=== PATIENT | male | born 1985 | race Two or more races ===

== ENCOUNTER 2020-04-11 07:05 | Emergency (ER) | payer BC ==
[2020-04-11] MEDS ORDERED: Dextrose 5%-0.9% NaCl 1,000 ML IV SCH (07:45)
--- NOTE | 2020-04-11 07:52 | EDM.PDOC ---
ED HPI GENERAL MEDICAL PROBLEM - General Chief Complaint: Respiratory Problem Stated Complaint: COUGH/FEVER Time Seen by Provider: 04/11/20 07:52 Source of Information: Reports: Patient History Limitations: Reports: No Limitations - History of Present Illness INITIAL COMMENTS - FREE TEXT/NARRATIVE: 34-year-old male presents to the ED with a severe paroxysmal cough for the better part of 3 days. Coughing up yellowish-greenish material. Associated shortness of breath on minimal exertion. O2 sats 94% on room air. He denies any fever chills or deep body aches. He does have some diffuse low back pain which he believes is aggravated by coughing so much Appetite has been good. Have some loose diarrhea stools the first day of illness. 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 Denies headache. No change in taste or sense of smell. He is usually very healthy. He has no history of asthma or diabetes. Takes no medications prescribed by Onset: Sudden Onset Date: 04/08/20 Duration: Day(s):, Constant, Getting Worse Location: Reports: Chest (Very paroxysmal cough to the point of near emesis.) Quality: Reports: Other Severity: Moderate (No body aches.) Improves with: Reports: Rest Worsens with: Reports: Other (Cough worsens with exertion.). Denies: None, Breathing, Cold Therapy, Eating, Heat Therapy Associated Symptoms: Reports: Chest Pain, Cough, cough w sputum (Central chest pain from coughing so much.), Headaches, Loss of Appetite (Headache only with coughing.), Malaise, Shortness of Breath. Denies: Confusion, Diaphoresis ( Yellowish sputum.), Fever/Chills, Nausea/Vomiting, Rash, Seizure, Syncope, Weakness Treatments SENIOR TECHNICAL SPECIALIST: Reports: Acetaminophen, Other (see below) (Taking Robitussin cough syrup [id number]) Bilateral Lower Back Pain Score (Numeric/FACES): 6 - Related Data Allergies Allergy/AdvReac Type Severity Reaction Status Date / Time No Known Allergies Allergy Verified 04/11/20 07:46 Home Meds: Home Meds Hydrocodone/Chlorphen P-Stirex [Hydrocodone-Chlorphen ER Susp] 5 ml PO Q12H PRN #60 ml 10/07/20 [Rx] Past Medical History - Past Health History Medical/Surgical History: Denies Medical/Surgical History - Infectious Disease History Infectious Disease History: Reports: Chicken Pox, Influenza Social & Family History - Tobacco Use Smoking Status *Q: Never Smoker - Caffeine Use Caffeine Use: Reports: None - Recreational Drug Use Recreational Drug Use: No - Living Situation & Occupation Occupation: Employed ED ROS GENERAL - Review of Systems Review Of Systems: See Below Constitutional: Reports: Weakness, Fatigue. Denies: Fever, Chills, Malaise, Decreased Appetite, Weight Loss HEENT: Reports: No Symptoms Respiratory: Reports: Shortness of Breath, Cough. Denies: Wheezing, Pleuritic Chest Pain Cardiovascular: Reports: Chest Pain (Upper anterior chest pain from coughing so much.). Denies: Blood Pressure Problem, Dyspnea on Exertion, Edema, Lightheadedness, Orthopnea, Palpitations Endocrine: Reports: Fatigue GI/Abdominal: Reports: Diarrhea (He had fairly loose stools the first day of illness but not since.) : Reports: No Symptoms Musculoskeletal: Reports: Back Pain Skin: Reports: No Symptoms (Diffuse back pain from coughing so much.) Neurological: Reports: No Symptoms Psychiatric: Reports: No Symptoms Hematologic/Lymphatic: Reports: No Symptoms Immunologic: Reports: No Symptoms ED EXAM, GENERAL - Physical Exam Exam: See Below Exam Limited By: No Limitations General Appearance: Alert, WD/WN, Mild Distress, Other (Continues to have paroxysmal mainly nonproductive cough on exam. Temperature was 36.4 and he does not feel warm to palpation. Heart rate was 108 and sinus at the bedside. Respiratory is 13 to 15/min. BP 1 3793 with O2 sats of 94 to 96% room air) Eye Exam: Bilateral Eye: Normal Inspection (No scleral icterus or blepharal pallor.) Ears: Normal TMs Throat/Mouth: Normal Inspection, Normal Lips, Normal Teeth, Normal Oropharynx, Other (Diffuse mild erythema of the posterior oropharynx.) Head: Atraumatic, Normocephalic ( No exudate) Neck: Normal Inspection, Supple, Non-Tender, Full Range of Motion, Limited Range of Motion. No: Lymphadenopathy (L), Lymphadenopathy (R) Respiratory/Chest: No Respiratory Distress, Lungs Clear, Normal Breath Sounds, No Accessory Muscle Use. No: Crackles, Rales, Rhonchi, Wheezing Cardiovascular: Normal Peripheral Pulses, Regular Rate, Rhythm, No Edema, No Gallop, No Murmur, No Rub Peripheral Pulses: 3+: Carotid (L), Carotid (R), Posterior Tibial (L), Posterior Tibial (R), Dorsalis Pedis (L), Dorsalis Pedis (R) GI/Abdominal: Normal Bowel Sounds, Soft, Non-Tender, No Organomegaly, No Mass, Pelvis Stable, Other (Mildly obese) Back Exam: Normal Inspection, Full Range of Motion. No: CVA Tenderness (L), CVA Tenderness (R) Extremities: Normal Inspection, Normal Range of Motion, Non-Tender, No Pedal Edema Neurological: Oriented, CN II-XII Intact, Normal Cognition Psychiatric: Normal Affect, Normal Mood Skin Exam: Warm, Dry, Intact, Normal Color, No Rash EKG INTERPRETATION EKG Date: 04/11/20 Time: 07:47 Rhythm: Other Rate (Beats/Min): 102 P-Wave: Present QRS: Other (Nonspecific intraventricular conduction delay noted in V2 V3.) QT: Normal EKG Interpretation Comments: Borderline ECG Course - Vital Signs Last Recorded V/S: Last Vital Signs Temp 36.4 C 04/11/20 07:22 Pulse 108 H 04/11/20 07:22 Resp 13 04/11/20 07:22 BP 137/93 H 04/11/20 07:22 Pulse Ox 100 04/11/20 11:02 - Orders/Labs/Meds Orders: Active Orders 24 hr Category Date Time Status Chest 1V Frontal [CR] Stat Exams 04/11/20 07:42 Taken COMPREHENSIVE METABOLIC PN,CMP [CHEM] Stat Lab 04/11/20 08:10 Results CRP [C-REACTIVE PROTEIN] [CHEM] Stat Lab 04/11/20 08:10 Results FERRITIN [CHEM] Stat Lab 04/11/20 08:10 Received LACTATE DEHYDROGENASE,LDH [CHEM] Stat Lab 04/11/20 08:10 Results MAGNESIUM [CHEM] Stat Lab 04/11/20 08:10 Results PRO B-TYPE NATRIUR PEPT,BNPPRO [CHEM] Stat Lab 04/11/20 08:10 Received Peripheral IV Insertion Adult [OM.PC] Stat Oth 04/11/20 08:15 Ordered Labs: Laboratory Tests 04/11/20 04/11/20 04/11/20 Range/Units 08:10 08:10 08:10 WBC 4.60 (4.23-9.07) K/mm3 RBC 5.25 (4.63-6.08) M/mm3 Hgb 15.4 (13.7-17.5) gm/dl Hct 45.4 (40.1-51.0) % MCV 86.5 (79.0-92.2) fl MCH 29.3 (25.7-32.2) pg MCHC 33.9 (32.2-35.5) g/dl RDW Std Deviation 37.8 (35.1-43.9) fL Plt Count 162 L (163-337) K/mm3 MPV 9.9 (9.4-12.3) fl Neut % (Auto) 70.7 H (34.0-67.9) % Lymph % (Auto) 16.3 L (21.8-53.1) % [place] % (Auto) 12.6 H (5.3-12.2) % Eos % (Auto) 0 L (0.8-7.0) Baso % (Auto) 0.2 (0.1-1.2) % Neut # (Auto) 3.25 (1.78-5.38) K/mm3 Lymph # (Auto) 0.75 L (1.32-3.57) K/mm3 [place] # (Auto) 0.58 (0.30-0.82) K/mm3 Eos # (Auto) 0.00 L (0.04-0.54) K/mm3 Baso # (Auto) 0.01 (0.01-0.08) K/mm3 PT (9.7-11.7) SECONDS INR APTT (22-31) SECONDS D-Dimer, Quantitative 0.88 H (0.19-0.50) mg/L Sodium 137 (136-145) mEq/L Potassium 3.6 (3.5-5.1) mEq/L Chloride 100 (98-107) mEq/L Carbon Dioxide 26 (21-32) mEq/L Anion Gap 14.6 (5-15) BUN 12 (7-18) mg/dL Creatinine 1.0 (0.7-1.3) mg/dL Est Cr Clr Drug Dosing 95.70 mL/min Estimated GFR (MDRD) > 60 (>60) mL/min BUN/Creatinine Ratio 12.0 L (14-18) Glucose 104 (74-106) mg/dL Calcium 8.8 (8.5-10.1) mg/dL Magnesium 2.1 (1.8-2.4) mg/dl Total Bilirubin 0.9 (0.2-1.0) mg/dL AST 51 H (15-37) U/L ALT 80 H (16-63) U/L Alkaline Phosphatase 52 (46-116) U/L C-Reactive Protein 5.2 H* (<1.0) mg/dL Total Protein 7.7 (6.4-8.2) g/dl Albumin 3.7 (3.4-5.0) g/dl Globulin 4.0 gm/dL Albumin/Globulin Ratio 0.9 L (1-2) SARS-CoV-2 RNA (JONO) (NEGATIVE) 04/11/20 04/11/20 Range/Units 08:10 08:40 WBC (4.23-9.07) K/mm3 RBC (4.63-6.08) M/mm3 Hgb (13.7-17.5) gm/dl Hct (40.1-51.0) % MCV (79.0-92.2) fl MCH (25.7-32.2) pg MCHC (32.2-35.5) g/dl RDW Std Deviation (35.1-43.9) fL Plt Count (163-337) K/mm3 MPV (9.4-12.3) fl Neut % (Auto) (34.0-67.9) % Lymph % (Auto) (21.8-53.1) % [place] % (Auto) (5.3-12.2) % Eos % (Auto) (0.8-7.0) Baso % (Auto) (0.1-1.2) % Neut # (Auto) (1.78-5.38) K/mm3 Lymph # (Auto) (1.32-3.57) K/mm3 [place] # (Auto) (0.30-0.82) K/mm3 Eos # (Auto) (0.04-0.54) K/mm3 Baso # (Auto) (0.01-0.08) K/mm3 PT 10.4 (9.7-11.7) SECONDS INR 0.97 APTT 27 (22-31) SECONDS D-Dimer, Quantitative (0.19-0.50) mg/L Sodium (136-145) mEq/L Potassium (3.5-5.1) mEq/L Chloride (98-107) mEq/L Carbon Dioxide (21-32) mEq/L Anion Gap (5-15) BUN (7-18) mg/dL Creatinine (0.7-1.3) mg/dL Est Cr Clr Drug Dosing mL/min Estimated GFR (MDRD) (>60) mL/min BUN/Creatinine Ratio (14-18) Glucose (74-106) mg/dL Calcium (8.5-10.1) mg/dL Magnesium (1.8-2.4) mg/dl Total Bilirubin (0.2-1.0) mg/dL AST (15-37) U/L ALT (16-63) U/L Alkaline Phosphatase (46-116) U/L C-Reactive Protein (<1.0) mg/dL Total Protein (6.4-8.2) g/dl Albumin (3.4-5.0) g/dl Globulin gm/dL Albumin/Globulin Ratio (1-2) SARS-CoV-2 RNA (JOON) Positive H (NEGATIVE) Meds: Medications Discontinued Medications Generic Name Dose Route Start Last Admin Trade Name Freq PRN Reason Stop Dose Admin Hydromorphone HCl 0.5 mg 04/11/20 08:10 04/11/20 08:29 Dilaudid IVPUSH 04/11/20 08:11 0.5 mg ONETIME ONE Administration Dextrose/Sodium Chloride 1,000 mls @ 500 mls/hr 04/11/20 07:45 Dextrose 5%-Normal Saline IV ASDIRECTED MERCEDES Ondansetron HCl 4 mg 04/11/20 08:10 04/11/20 08:29 Zofran IVPUSH 04/11/20 08:11 4 mg ONETIME ONE Administration Sodium Chloride 10 ml 04/11/20 08:15 04/11/20 08:30 Saline Flush FLUSH 10 ml ASDIRECTED PRN Administration Keep Vein Open - Radiology Interpretation Free Text/Narrative:: 34-year-old male presents to the ED with a 3-day history of severe paroxysmal cough almost to the point of emesis. Diffuse low back pain and mid back pain he believes for secondary to coughing so hard. Cough most of last night and did not get any sleep. Sputum is mostly white to yellowish in color. No hemoptysis. No noted fever or chills. Appetite remains good. No diarrhea has occurred. No deep aching body pain characteristic of coronavirus infection. 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 Examination reveals ear nose and throat exam to be normal chest is clear to osseous percussion without wheezing. No adventitial sounds were noted. Plan he will have a chest x-ray carried out routine labs including a coronavirus screen. Given Dilaudid 0.5 mg IV with Zofran 4 mg IV for pain relief. At this time he appears to be well-hydrated. - Re-Assessments/Exams Free Text/Narrative Re-Assessment/Exam: 04/11/20 08:19 portable chest x-ray reveals a diffuse minimal infiltrate both lower lobes compatible with viral pneumonia. Cardiac silhouette is normal 04/11/20 08:51 White count is 4.60 with 70% neutrophils on the auto differential. Hemoglobin 15.4 with hematocrit of 45.4. MCV is normal. Platelet count 162,000 low normal 04/11/20 09:05 PT is 10.4 with an INR of 0.97. PTT is 27. D-dimer remains mildly elevated at 0.88. 04/11/20 09:22 Sodium 137 with potassium 3.6. Chloride 100 with a bicarb of 26. Anion gap is 14.6. BUN is 12 with a creatinine of 1.0. GFR is greater than 60. Glucose 104 with a calcium of 8.8. Magnesium is 2.1. Bilirubin is 0.9 with slightly elevated AST at 51 and slightly elevated ALT at 80. Alk phosphatase is 52. LDH is pending. C-reactive protein is elevated at 5.2. Tot al bilirubin is 7.7 with albumin fraction of 3.7. COVID-19 screen is pending 04/11/20 10:01 Serum ferritin is still pending. LDH is pending. COVID-19 screen came back positive. Only the analyzer is down for LDH and ferritin analysis and will not be available today. 04/11/20 11:00: An overall is doing better and recovering from COVID-19 illness. As long as he leaves his oxygen in place he is satting at 94% on 4 L. There is nothing else that we have to offer this gentleman at this time. He will therefore be sent back to [facility] in [place]. They will be sending there bus to pick him up. Departure - Departure Time of Disposition: 10:22 Disposition: Home, Self-Care 01 Condition: Fair Clinical Impression: Paroxysmal cough, COVID-19 determined by clinical diagnostic criteria - Discharge Information *PRESCRIPTION DRUG MONITORING PROGRAM REVIEWED*: Not Applicable *COPY OF PRESCRIPTION DRUG MONITORING REPORT IN PATIENT TINY: Not Applicable Prescriptions: Hydrocodone/Chlorphen P-Stirex [Hydrocodone-Chlorphen ER Susp] 5 ml PO Q12H PRN #60 ml PRN Reason: cough relief Instructions: COVID-19 Frequently Asked Questions, Infection Prevention in the Home, Prevent the Spread of COVID-19 if You Are Sick - [facility]– [place] Referrals: PCP,None [Primary Care Provider] - Forms: ED Department Discharge, ED Return to Work/School Form Additional Instructions: Evaluation in the emergency room today in regards to 3 days of severe paroxysmal cough to the point of nearly blacking out and emesis at times. Mild sputum production. No diarrhea appetite remains good no high fever or chills. Oxygen saturations on room air have been around 95%. Normal is 98-99. Chest x-ray reveals very mild infiltrates in both lower lobes compatible with COVID-19 illness. The COVID-19 test was positive for this illness. You will therefore have to self quarantine for another 8 days. Coworkers need to be notified of your diagnosis and they should be self quarantined for a period of 2 weeks. May use Motrin 600 mg every 6 hours if needed for relief of headache, body ache if needed. Cough syrup is Tussionex 5 mils primarily an hour before bedtime to help sleep and reduce cough. May use it first thing in the morning if needed for severe cough relief as well. Sepsis Event Note (ED) - Evaluation Sepsis Screening Result: No Definite Risk - Focused Exam Vital Signs: Vital Signs Temp Pulse Resp BP Pulse Ox 04/11/20 11:02 100 04/11/20 07:22 36.4 C 108 H 13 137/93 H 96 - My Orders Last 24 Hours: My Active Orders 04/11/20 07:42 Chest 1V Frontal [CR] Stat 04/11/20 08:10 COMPREHENSIVE METABOLIC PN,CMP [CHEM] Stat CRP [C-REACTIVE PROTEIN] [CHEM] Stat FERRITIN [CHEM] Stat LACTATE DEHYDROGENASE,LDH [CHEM] Stat MAGNESIUM [CHEM] Stat PRO B-TYPE NATRIUR PEPT,BNPPRO [CHEM] Stat 04/11/20 08:15 Peripheral IV Insertion Adult [OM.PC] Stat - Assessment/Plan Last 24 Hours: My Active Orders 04/11/20 07:42 Chest 1V Frontal [CR] Stat 04/11/20 08:10 COMPREHENSIVE METABOLIC PN,CMP [CHEM] Stat CRP [C-REACTIVE PROTEIN] [CHEM] Stat FERRITIN [CHEM] Stat LACTATE DEHYDROGENASE,LDH [CHEM] Stat MAGNESIUM [CHEM] Stat PRO B-TYPE NATRIUR PEPT,BNPPRO [CHEM] Stat 04/11/20 08:15 Peripheral IV Insertion Adult [OM.PC] Stat
[2020-04-11] MEDS ORDERED: Ondansetron 4 MG/2 ML SDV IVPUSH ONE (08:10)
[2020-04-11] MEDS ORDERED: HYDROmorphone 0.5 MG/0.5 ML Syringe IVPUSH ONE (08:10)
[2020-04-11] MEDS ORDERED: Sodium Chloride 0.9% 10 ML Syringe FLUSH PRN (08:15)
== END 2020-04-11 11:05 | disposition home or self-care (01) ==
LOC: JD.ED 07:05
DX: U07.1 COVID-19 (principal)
CPT/HCPCS: 36415; 71045; 80053; 82728; 83615; 83735; 83880; 85025; 85379; 85610; 85730; 86140; 87635; 93005; 96374; 96375; 99285; J1170; J2405; 93010; 99283; U0002